=== PATIENT | male | born 1970 | race Caucasian/White ===

== ENCOUNTER 2017-07-17 11:28 | Inpatient (IN) | payer MEDICAID ==
[~2017-07-17] VITALS: Ht 175.3 cm; Wt 83.9 kg
[2017-07-17 13:28] LABS: PLATELET COUNT 430 x10^3mcL (130-400); RED CELL DISTRIBUTION WIDTH 12.3 % (11.5-14.5)
[2017-07-17 13:38] LABS: CALCIUM 9.1 mg/dL (8.5-10.1); CARBON DIOXIDE 30.2 mmol/L (21-32); CHLORIDE SERUM 97 mmol/L (98-107); CREATININE SERUM 1.3 mg/dL (0.7-1.3); GFR1 > 60 mL/min; GLUCOSE SERUM 324 mg/dL (74-106); POTASSIUM SERUM 3.7 mmol/L (3.5-5.1); SODIUM SERUM 134 mmol/L (136-145)
[2017-07-17 13:43] LABS: ALKALINE PHOSPHATASE 96 U/L (46-116); ALT/SGPT 28 U/L (16-63); AST/SGOT 16 U/L (15-37); BILIRUBIN TOTAL 0.4 mg/dL (0.20-1.00); TOTAL PROTEIN, SERUM 8.6 g/dL (6.4-8.2)
[2017-07-17 13:57] LABS: BAND NEUTROPHIL 2 % (0-10); BASOPHIL 0 % (0-2); MONOCYTE 4 % (0-7); SEGMENTED NEUTROPHILS 82 % (37-75); rbc morphology (normal/abnorm) NORMAL (NORMAL)
[2017-07-17 13:58] LABS: PLATELET MORPHOLOGY PLATELETS INCREASED
[2017-07-17] MEDS ORDERED: AZITHROMYCIN250 M1 (14:50)
[2017-07-17 16:12] VITALS: BP 145/103
[2017-07-17 16:15] VITALS: Ht 175.3 cm; Wt 83.9 kg
[2017-07-17 17:46] LABS: FREE T4 1.47 ng/dL (0.76-1.46); FREE THYROXINE INDEX 4.3 ug/dL (1.4-4.5); T4(THYROXINE) 11.7 ug/dL (4.7-13.3)
[2017-07-17 17:53] LABS: T3 TOTAL 0.98 ng/mL
[2017-07-17 18:13] LABS: MAGNESIUM 2.3 mg/dL (1.8-2.4); PHOSPHOROUS 3.7 mg/dL (2.5-4.9)
[2017-07-17 21:23] VITALS: BP 142/92
[2017-07-18 00:03] VITALS: BP 142/92
[2017-07-18 05:06] VITALS: BP 145/94
[2017-07-18 06:21] LABS: BASOPHIL % 0.2 % (0-2); PLATELET COUNT 353 x10^3mcL (130-400); RED CELL DISTRIBUTION WIDTH 12.2 % (11.5-14.5)
[2017-07-18 06:37] LABS: CALCIUM 8.2 mg/dL (8.5-10.1); CARBON DIOXIDE 25.7 mmol/L (21-32); CHLORIDE SERUM 102 mmol/L (98-107); CREATININE SERUM 1.1 mg/dL (0.7-1.3); GFR1 > 60 mL/min; GLUCOSE SERUM 219 mg/dL (74-106); POTASSIUM SERUM 3.6 mmol/L (3.5-5.1); SODIUM SERUM 137 mmol/L (136-145)
[2017-07-18 08:44] LABS: UA SPECIFIC GRAVITY 1.025 (1.005-1.035); microscopic required? YES; urine erythrocyte 2+ (NEGATIVE)
[2017-07-18 08:52] LABS: AMPHETAMINE QUAL UR NONE DETECTED (NEG <=1000)
[2017-07-18 09:43] VITALS: BP 153/99
[2017-07-18 12:36] VITALS: BP 148/100
[2017-07-18 16:51] VITALS: BP 142/88
[2017-07-18 21:49] VITALS: BP 131/83
[2017-07-19 05:47] VITALS: BP 134/87
[2017-07-19 07:54] LABS: BASOPHIL % 0.1 % (0-2); PLATELET COUNT 341 x10^3mcL (130-400); RED CELL DISTRIBUTION WIDTH 11.9 % (11.5-14.5)
[2017-07-19 08:08] LABS: CALCIUM 8.6 mg/dL (8.5-10.1); CARBON DIOXIDE 28.6 mmol/L (21-32); CHLORIDE SERUM 101 mmol/L (98-107); CREATININE SERUM 1.1 mg/dL (0.7-1.3); GFR1 > 60 mL/min; GLUCOSE SERUM 254 mg/dL (74-106); MAGNESIUM 2.3 mg/dL (1.8-2.4); PHOSPHOROUS 4.1 mg/dL (2.5-4.9); POTASSIUM SERUM 3.6 mmol/L (3.5-5.1); SODIUM SERUM 136 mmol/L (136-145)
[2017-07-19 09:19] VITALS: BP 123/91
[2017-07-19 14:21] VITALS: BP 115/70
[2017-07-19] MEDS ORDERED: IPRATROPIUM BROM3 M2 HHN ×2 (15:36→15:38)
[2017-07-19] MEDS ORDERED: ZIT250 PO (15:36)
[2017-07-19] MEDS ORDERED: HEP5I SC (15:38)
[2017-07-19] MEDS ORDERED: LIPI10 PO (15:39)
[2017-07-19] MEDS ORDERED: ZES5 PO (15:39)
[2017-07-19] MEDS ORDERED: PRI20 PO (15:40)
[2017-07-19] MEDS ORDERED: COUGH100 MG/5 M PO (15:40)
[2017-07-19] MEDS ORDERED: LAC PO (15:40)
[2017-07-19] MEDS ORDERED: METFORMIN HCL1000 MG PO (15:41)
[2017-07-19] MEDS ORDERED: GLU5 PO (15:41)
[2017-07-19] MEDS ORDERED: ROC1I IM (15:42)
[2017-07-19 16:07] VITALS: BP 115/70
== END 2017-07-19 17:38 | disposition short-term general hospital (02) | DRG 720 ==
LOC: ED 11:28 → DU 14:46
PROVIDERS: Emergency Medicine; ADMIT Family Medicine
DX: A41.9 Sepsis, unspecified organism (principal); J18.9 Pneumonia, unspecified organism; D68.69 Other thrombophilia; E11.59 Type 2 diabetes mellitus with other circulatory complications; E44.0 Moderate protein-calorie malnutrition; E11.65 Type 2 diabetes mellitus with hyperglycemia; R31.9 Hematuria, unspecified; N20.0 Calculus of kidney; I10 Essential (primary) hypertension; E78.5 Hyperlipidemia, unspecified; Z68.27 Body mass index [BMI] 27.0-27.9, adult
CPT/HCPCS: 83880; 84439; 94150; G0480; J0696; J1644; J1940; J2405; J7030; J7620; Q0092

== ENCOUNTER 2019-01-21 17:20 | Inpatient (IN) | payer MEDICAID ==
[~2019-01-21] VITALS: Ht 172.7 cm; Wt 84.4 kg
[~2019-01-21 17:20] MED LIST: AZITHROMYCIN250 M1; COUGH100 MG/5 M PO; GLU5 PO; HEP5I SC; IPRATROPIUM BROM3 M2 HHN; LAC PO; LIPI10 PO; METFORMIN HCL1000 MG PO; PRI20 PO; ROC1I IM; ZES5 PO; ZIT250 PO
[2019-01-21 17:37] VITALS: Ht 172.7 cm; Wt 84.4 kg
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
[2019-01-21 20:41] LABS: BASOPHIL % 0.3 % (0-2); PLATELET COUNT 269 x10^3mcL (130-400); RED CELL DISTRIBUTION WIDTH 12.8 % (11.5-14.5)
[2019-01-21 20:54] LABS: CALCIUM 8.9 mg/dL (8.5-10.1); CARBON DIOXIDE 20.6 mmol/L (21-32); CHLORIDE SERUM 100 mmol/L (98-107); CREATININE SERUM 1.1 mg/dL (0.7-1.3); GFR1 > 60 mL/min; GLUCOSE SERUM 173 mg/dL (74-106); POTASSIUM SERUM 3.5 mmol/L (3.5-5.1); SODIUM SERUM 137 mmol/L (136-145)
[2019-01-21 20:56] LABS: UA SPECIFIC GRAVITY >=1.030 (1.005-1.035); microscopic required? YES
[2019-01-21 20:57] LABS: urine erythrocyte TRACE (NEGATIVE)
[2019-01-21 20:59] LABS: ALBUMIN 4.2 g/dL (3.4-5.0); ALKALINE PHOSPHATASE 72 U/L (46-116); ALT/SGPT 27 U/L (16-63); AST/SGOT 18 U/L (15-37); BILIRUBIN TOTAL 0.6 mg/dL (0.20-1.00); TOTAL PROTEIN, SERUM 8.4 g/dL (6.4-8.2)
[2019-01-21 21:00] LABS: AMPHETAMINE QUAL UR NONE DETECTED (See below)
--- NOTE | 2019-01-21 22:13 | NUR ---
SON AT BEDSIDE PT STATES HIS HR IS HIGH BECAUSE HE IS NERVOUS ABOUT HIS PENIS
--- NOTE | 2019-01-21 23:04 | NUR ---
PT STILL VERY CONCERNED WITH RESULTS OF WHY HE IS FEELING LIKE THIS.
--- NOTE | 2019-01-22 00:19 | NUR ---
PT CALLING SON TO SEND PICTURES OF MEDICATIONS HE TAKES
--- NOTE | 2019-01-22 00:20 | NUR ---
CALLED RT FOR VBG.
--- NOTE | 2019-01-22 00:25 | NUR ---
LAB HAS VBG AND RESPIRATORY IS AWARE AND ON THEIR WAY TO PICK IT UP
--- NOTE | 2019-01-22 00:32 | NUR ---
SPOKE WITH PT INSURANCE FOR CLINICAL INFORMATION TO ADMIT PT
--- NOTE | 2019-01-22 02:37 | NUR ---
PT AWAITING TO BE TRANSFERRED TO ANOTHER FACILITY
--- NOTE | 2019-01-22 04:31 | NUR ---
REPORT CALLED TO ROMY DALEY
[2019-01-22 04:42] LABS: CHOLESTEROL/HDL RATIO 4.1; MAGNESIUM 2.1 mg/dL (1.8-2.4); PHOSPHOROUS 3.5 mg/dL (2.5-4.9)
--- NOTE | 2019-01-22 04:45 | NUR ---
RECEIVED PT. FROM ER VIA GURNEY ACCOMPANIED BY ER NURSE. HE IS AWAKE, ALERT, ORIENTED X4. DENIES HEADACHE OR DIZZINESS. BREATH SOUNDS CLEAR THROUGHOUT LUNG ALFARO, RESP. EVEN, UNLABORED. NO SOB NOTED. PT. ON RA. DENIES CHESTOAIN, ON TELE #21, NSR, NO ECTOPIES NOTED. NO EDEMA TO EXTREMITITES. NO EDEMTO PENIS OR SCROTUM. PEDAL PULSES STRONG NICK. ABD. SOFT AND ROUND, BOWEL SOUNDS ACTIVE. IVF NS STARTED AT 125CC/HR TO RAC. DR. PATTERSON CAME AND SPOKE WITH PT. CONCERNS ADDRESSED THUS FAR. CALL LIGHT PLACED WITHIN REACH. PLAN OF CARE DISCUSSED WITH PT.
[2019-01-22 04:52] LABS: FREE T4 1.38 ng/dL (0.76-1.46); FREE THYROXINE INDEX 4.3 ug/dL (1.4-4.5); T3 TOTAL 1.31 ng/mL; T4(THYROXINE) 12.5 ug/dL (4.7-13.3)
[2019-01-22 07:02] LABS: CALCIUM 8.8 mg/dL (8.5-10.1); CARBON DIOXIDE 22.3 mmol/L (21-32); CHLORIDE SERUM 103 mmol/L (98-107); CREATININE SERUM 0.9 mg/dL (0.7-1.3); GFR1 > 60 mL/min; GLUCOSE SERUM 125 mg/dL (74-106); POTASSIUM SERUM 3.4 mmol/L (3.5-5.1); SODIUM SERUM 139 mmol/L (136-145)
[2019-01-22 07:19] LABS: BASOPHIL % 0.4 % (0-2); PLATELET COUNT 248 x10^3mcL (130-400); RED CELL DISTRIBUTION WIDTH 12.6 % (11.5-14.5)
--- NOTE | 2019-01-22 07:35 | NUR ---
AAO X4.DENIES ANY PAIN/DISCOMFORT.LUNGS CLEAR.ON SR ON THE MONITOR.IVF NS GOING AT 125 ML/HR INFUSINF WELL.CALL LIGHT WITHIN REACH.INSTRUCTED TO CALL FOR ANY PAIN/DISCOMFORT.WILL CONTINUE TO MONITOR PT.
[2019-01-22 09:30] VITALS: BP 128/84
[2019-01-22 13:41] VITALS: BP 139/93
[2019-01-22 14:35] VITALS: BP 139/93
--- NOTE | 2019-01-22 15:16 | NUR ---
TAUGHT PT HOW TO DO HIS BLOOD SUGAR PER PT DOES NOT KNOW HOW TO DO BLOOD SUGAR.ALSO GOT PRESCRIPTION FOR GLUCOMETER,LANSET AND STRIPS.ALSO GOT RX FOR HYDROCORTISONE CREAM FOR HIS PENIS.PT D/C TO HOME IV AND MONITOR D/C'D.RX AND D/C INSTRUCTION GIVEN PT VERBALIZES UNDERSTANDING.WENT DOWN AMBULATORY ACCOMPANIED BY VOCATIONAL EXAMINER.
== END 2019-01-22 15:25 | disposition home or self-care (01) | DRG 420 ==
LOC: ED 17:20 → DU 01-22 03:52
PROVIDERS: Emergency Medicine; ADMIT Internal Medicine
DX: E11.10 Type 2 diabetes mellitus with ketoacidosis without coma (principal); N17.0 Acute kidney failure with tubular necrosis; F98.8 Other specified behavioral and emotional disorders with onset usually occurring in childhood and adolescence; E11.65 Type 2 diabetes mellitus with hyperglycemia; E87.2 Acidosis; R80.9 Proteinuria, unspecified; I10 Essential (primary) hypertension; Z68.27 Body mass index [BMI] 27.0-27.9, adult; Z79.84 Long term (current) use of oral hypoglycemic drugs
CPT/HCPCS: 82962; 84439; 87491; 87591; J7030; Q0092

== ENCOUNTER 2020-03-07 12:01 | Emergency (ER) | payer MEDICAID ==
[~2020-03-07] VITALS: Ht 175.3 cm; Wt 87.1 kg
[2020-03-07 12:18] VITALS: Ht 175.3 cm; Wt 87.1 kg
[2020-03-07 13:56] VITALS: BP 147/91
== END 2020-03-07 13:56 | disposition home or self-care (01) ==
LOC: ED 12:01
DX: S22.32XA Fracture of one rib, left side, initial encounter for closed fracture (principal); J98.4 Other disorders of lung; R07.89 Other chest pain; I10 Essential (primary) hypertension; E11.9 Type 2 diabetes mellitus without complications; Z88.1 Allergy status to other antibiotic agents; W01.0XXA Fall on same level from slipping, tripping and stumbling without subsequent striking against object, initial encounter; Y93.89 Activity, other specified; Y92.89 Other specified places as the place of occurrence of the external cause; Y99.8 Other external cause status

== ENCOUNTER 2020-03-11 09:56 | Emergency (ER) | payer MEDICAID ==
[~2020-03-11] VITALS: Ht 172.7 cm; Wt 90.7 kg
[2020-03-11 11:01] VITALS: Ht 172.7 cm; Wt 90.7 kg
[2020-03-11 14:22] VITALS: BP 138/88
== END 2020-03-11 14:14 | disposition home or self-care (01) ==
LOC: ED 09:56
DX: U07.1 COVID-19 (principal); J12.89 Other viral pneumonia; I10 Essential (primary) hypertension; E11.9 Type 2 diabetes mellitus without complications; Z88.1 Allergy status to other antibiotic agents
CPT/HCPCS: 82962; Q0092; U0003-CS

== ENCOUNTER 2020-03-16 08:14 | Emergency (ER) | payer MEDICAID ==
[~2020-03-16] VITALS: Ht 175.3 cm; Wt 83.0 kg
[2020-03-16 08:33] VITALS: Ht 175.3 cm; Wt 83.0 kg
[2020-03-16 10:21] VITALS: BP 141/99
== END 2020-03-16 10:21 | disposition home or self-care (01) ==
LOC: ED 08:14
DX: J18.9 Pneumonia, unspecified organism (principal); J84.10 Pulmonary fibrosis, unspecified; G47.00 Insomnia, unspecified; I10 Essential (primary) hypertension; E11.9 Type 2 diabetes mellitus without complications; E78.00 Pure hypercholesterolemia, unspecified; Z88.1 Allergy status to other antibiotic agents
CPT/HCPCS: Q0092

== ENCOUNTER 2020-03-18 08:48 | Emergency (ER) | payer MEDICAID | END 2020-03-18 09:10 | disposition left against medical advice (07) | LOC: ED 08:48 | DX: Z53.21 Procedure and treatment not carried out due to patient leaving prior to being seen by health care provider (principal) ==